=== PATIENT | male | born 1990 | race Caucasian/White ===

== ENCOUNTER 2016-08-11 03:44 | Emergency (ER) | payer SELFPAY ==
--- NOTE | 2016-08-11 03:57 | NUR ---
[facility] PT ARRIVED TO BE SEEN FOR ABS CRAMPING, BUT THIS PAIN HAS RESOLVES. PT WANTING TO LEAVE. PT IS READ THE [facility]BS FORM. PT UNDERSTANDS AND SIGNS FORM. PT LEAVES
== END 2016-08-11 03:57 | disposition left against medical advice (07) ==
LOC: ED 03:44
DX: Z53.21 Procedure and treatment not carried out due to patient leaving prior to being seen by health care provider (principal)